=== PATIENT | female | born 1955 | race Caucasian/White ===

== ENCOUNTER → 2016-08-18 | Outpatient (CLI) | payer OTHER ==
--- NOTE | 2016-08-18 11:58 | BD ---
EXAMINATION TYPE: MG DEXA axial skeleton. DATE OF EXAM: 08/18/2016 10:14 AM COMPARISON: NONE CLINICAL HISTORY: Height: 67 IN Weight: 210 LBS FRAX RISK QUESTIONS: Alcohol (3 or more units per day): NO Family History (Parent hip fracture): NO Glucocorticoids (More than 3mos): NO (Ex: prednisone, prednisolone, methylprednisolone, dexamethasone, and hydrocortisone). History of Fracture in Adulthood: NO Secondary Osteoporosis: 1. Type 1 Diabetes: NO 2. Hyperthyroidism: NO 3. Menopause before 45: AGE 45 4. Malnutrition: NO 5. Chronic liver disease: NO Rheumatoid Arthritis: NO Current Tobacco Use: NO RISK FACTORS HISTORY OF: Active: YES Postmenopausal woman: YES AGE 45 TOTAL HYST MEDICATIONS: Additional Medications: VIT D,BLOOD PRESSURE MED EXAM MEASUREMENTS: Bone mineral densitometry was performed using the [employer]. Bone mineral density as measured about the Lumbar spine is: ----- L1-L4(G/cm2): 1.128 T Score Values are as follows: ----- L2: 0.3 ----- L3: 0.0 ----- L4: -1.4 ----- L1-L4: -0.4 Bone mineral density BASELINE Bone mineral density about the R hip (g/cm2): 0.862 Bone mineral density about the L hip (g/cm2): 0.874 T Score values are as follows: -----R Neck: -1.3 -----L Neck: -1.2 -----R Intertrochanter: -1.1 -----L Intertrochanter: 0.0 Bone mineral density BASELINE IMPRESSION: Osteopenia (T Score between -2.5 and -1 as noted by T score values There is slightly increased risk of fracture and the patient may be considered for treatment. Re-Screen 1-2 years. L4 AND THERESA HIPS NOTE: T-SCORE=SD OF THE YOUNG ADULT MEAN.
--- NOTE | 2016-08-21 10:35 | MM ---
Reason for exam: screening (asymptomatic). Last mammogram was performed 1 year and 1 month ago. History: Patient is postmenopausal, has history of endometrial cancer at age 53, and had first child at age 32. Physical Findings: A clinical breast exam by your physician is recommended on an annual basis and results should be correlated with mammographic findings. MG 3D Screening Mammo W/Cad Bilateral CC and MLO view(s) were taken. Prior study comparison: July 16, 2015, bilateral MG screening mammo w CAD. June 04, 2014, bilateral MG screening mammo w CAD. There are scattered fibroglandular densities. Finding: There are typically benign round calcifications in both breasts. There is a chronic nodularity in the right breast. There is no discrete abnormality. ASSESSMENT: Benign, BI-RAD 2 RECOMMENDATION: Routine screening mammogram of both breasts in 1 year.
== END | disposition home or self-care (01) ==
LOC: RADMAMWWP 09:06
PROVIDERS: ATTEND Obstetrics & Gynecology
DX: Z12.31 Encounter for screening mammogram for malignant neoplasm of breast (principal); M85.88 Other specified disorders of bone density and structure, other site; M85.852 Other specified disorders of bone density and structure, left thigh; M85.851 Other specified disorders of bone density and structure, right thigh
CPT/HCPCS: 77080; 77063; G0202

== ENCOUNTER → 2017-10-09 | Outpatient (CLI) | payer OTHER ==
--- NOTE | 2017-10-11 07:44 | MM ---
Reason for exam: screening (asymptomatic). Last mammogram was performed 1 year and 2 months ago. History: Patient is postmenopausal, has history of endometrial cancer at age 53, and had first child at age 32. Physical Findings: A clinical breast exam by your physician is recommended on an annual basis and results should be correlated with mammographic findings. MG 3D Screening Mammo W/Cad Bilateral CC and MLO view(s) were taken. Prior study comparison: August 18, 2016, bilateral MG 3d screening mammo w/cad. July 16, 2015, bilateral MG screening mammo w CAD. There are scattered fibroglandular densities. No significant changes when compared with prior studies. ASSESSMENT: Benign, BI-RAD 2 RECOMMENDATION: Routine screening mammogram of both breasts in 1 year.
== END | disposition home or self-care (01) ==
LOC: RADMAMWWP 11:01
PROVIDERS: ATTEND Obstetrics & Gynecology
DX: Z12.31 Encounter for screening mammogram for malignant neoplasm of breast (principal)
CPT/HCPCS: 77063; 77067

== ENCOUNTER → 2019-01-02 | Outpatient (CLI) | payer OTHER ==
--- NOTE | 2019-01-03 11:53 | MM ---
Reason for exam: screening (asymptomatic). Last mammogram was performed 1 year and 3 months ago. History: Patient is postmenopausal, has history of endometrial cancer at age 53, and had first child at age 32. Physical Findings: A clinical breast exam by your physician is recommended on an annual basis and results should be correlated with mammographic findings. MG 3D Screening Mammo W/Cad Bilateral CC and MLO view(s) were taken. Prior study comparison: October 09, 2017, bilateral MG 3d screening mammo w/cad. August 18, 2016, bilateral MG 3d screening mammo w/cad. The breast tissue is heterogeneously dense. This may lower the sensitivity of mammography. There is chronic nodularity in the right breast. There is no discrete abnormality. ASSESSMENT: Negative, BI-RAD 1 RECOMMENDATION: Routine screening mammogram of both breasts in 1 year.
== END ==
LOC: RADMAMWWP 16:48
PROVIDERS: ATTEND Obstetrics & Gynecology
DX: Z12.31 Encounter for screening mammogram for malignant neoplasm of breast (principal)
CPT/HCPCS: 77063; 77067

== ENCOUNTER → 2020-05-24 | Outpatient (CLI) | payer MEDICARE ==
--- NOTE | 2020-05-25 13:30 | MM ---
Reason for exam: screening (asymptomatic). Last mammogram was performed 1 year and 5 months ago. History: Patient is postmenopausal, has history of endometrial cancer at age 53, and had first child at age 32. Physical Findings: A clinical breast exam by your physician is recommended on an annual basis and results should be correlated with mammographic findings. MG 3D Screening Mammo W/Cad Bilateral CC and MLO view(s) were taken. XCCL view(s) were taken of the left breast. Prior study comparison: January 02, 2019, bilateral MG 3d screening mammo w/cad. October 09, 2017, bilateral MG 3d screening mammo w/cad. The breast tissue is heterogeneously dense. This may lower the sensitivity of mammography. There is chronic nodularity in the right breast. There is no discrete abnormality. ASSESSMENT: Negative, BI-RAD 1 RECOMMENDATION: Routine screening mammogram of both breasts in 1 year.
== END | disposition home or self-care (01) ==
LOC: RADMAMWWP 11:02
PROVIDERS: ATTEND Obstetrics & Gynecology
DX: Z12.31 Encounter for screening mammogram for malignant neoplasm of breast (principal)
CPT/HCPCS: 77063; 77067

== ENCOUNTER → 2021-06-02 | Outpatient (CLI) | payer MEDICARE ==
--- NOTE | 2021-06-06 09:50 | MM ---
Reason for exam: screening (asymptomatic). Last mammogram was performed 1 year ago. History: Patient is postmenopausal, has history of endometrial cancer at age 53, and had first child at age 32. Taking estrogen for 6 months. Physical Findings: A clinical breast exam by your physician is recommended on an annual basis and results should be correlated with mammographic findings. MG 3D Screening Mammo W/Cad Bilateral CC and MLO view(s) were taken. Prior study comparison: May 24, 2020, bilateral MG 3d screening mammo w/cad. January 02, 2019, bilateral MG 3d screening mammo w/cad. There are scattered fibroglandular densities. There is chronic nodularity in the right breast. No significant changes when compared with prior studies. ASSESSMENT: Benign, BI-RAD 2 RECOMMENDATION: Routine screening mammogram of both breasts in 1 year.
== END | disposition home or self-care (01) ==
LOC: RADMAMWWP 16:07
PROVIDERS: ATTEND Obstetrics & Gynecology
DX: Z12.31 Encounter for screening mammogram for malignant neoplasm of breast (principal); Z85.89 Personal history of malignant neoplasm of other organs and systems
CPT/HCPCS: 77063; 77067

== ENCOUNTER → 2022-06-05 | Outpatient (CLI) | payer MEDICARE ==
--- NOTE | 2022-06-06 17:34 | MM ---
Reason for Exam: Screening (asymptomatic). Last screening mammogram was performed 12 month(s) ago. Patient History: Menarche at age 11. First Full-Term at age 32. Late child-bearing (after 30). Left ovary removed at age 30. Right ovary removed at age 53. Hysterectomy at age 53. Postmenopausal. Endometrial cancer, age 53. Currently using Estrogen, for 6 months. Risk Values: Emily 5 year model risk: 2.4%. NCI Lifetime model risk: 7.3%. Prior Study Comparison: 01/02/2019 Bilateral Screening Mammogram, [facility]. 05/24/2020 Bilateral Screening Mammogram, [facility]. 06/02/2021 Bilateral Screening Mammogram, [facility]. Tissue Density: There are scattered fibroglandular densities. Findings: Analyzed By CAD. Focal asymmetry is in the upper outer aspect right mid breast. Chronic nodularities in the outer aspect right breast. In the anterior right breast there is some subsegmental calcifications which may correspond to a vessel. Closer evaluation however is recommended. Calcifications are increasing from comparison. Overall Assessment: Incomplete: need additional imaging evaluation, BI-RAD 0 Management: Diagnostic Mammogram of the right breast. A negative mammogram report should not preclude additional follow up of suspicious palpable abnormalities. Patient should continue monthly self breast exam. A clinical breast exam by your physician is recommended on an annual basis and results should be correlated with mammographic findings. Electronically signed and approved by: Juan Miguel Ha D.O. Radiologis
== END | disposition home or self-care (01) ==
LOC: RADMAMWWP 09:54
PROVIDERS: ATTEND Obstetrics & Gynecology
DX: Z12.31 Encounter for screening mammogram for malignant neoplasm of breast (principal); Z78.0 Asymptomatic menopausal state; Z90.721 Acquired absence of ovaries, unilateral
CPT/HCPCS: 77063; 77067

== ENCOUNTER → 2022-06-09 | Outpatient (CLI) | payer MEDICARE ==
--- NOTE | 2022-06-09 14:26 | MM ---
Reason for Exam: Additional evaluation requested from abnormal screening. Last screening mammogram was performed less than 1 month ago. Patient History: Menarche at age 11. First Full-Term at age 32. Late child-bearing (after 30). Left ovary removed at age 30. Right ovary removed at age 53. Hysterectomy at age 53. Postmenopausal. Endometrial cancer, age 53. Currently using Estrogen, for 6 months. Risk Values: Emily 5 year model risk: 2.4%. NCI Lifetime model risk: 7.3%. Tissue Density: Right: There are scattered fibroglandular densities. Findings: Analyzed By CAD. Grouped calcifications seen within the right breast lateral lower quadrant of the right breast at anterior/middle depth. While these calcifications may be in a vessel on some of the views including the ML view appear to be outside the vessel. Overall Assessment: Suspicious, BI-RAD 4 Management: Stereotactic Core Biopsy of the right breast. Grouped calcifications within the lower outer quadrant which on at least one view do not appear to be within a vessel. A clinical breast exam by your physician is recommended on an annual basis and results should be correlated with mammographic findings. This exam should not preclude additional follow-up of suspicious palpable abnormalities. Results were given to the patient verbally at the time of exam. Electronically signed and approved by: Aurelio Mendoza DO
== END | disposition home or self-care (01) ==
LOC: RADMAMWWP 13:38
PROVIDERS: ATTEND Obstetrics & Gynecology
DX: R92.8 Other abnormal and inconclusive findings on diagnostic imaging of breast (principal); Z78.0 Asymptomatic menopausal state
CPT/HCPCS: 77065; G0279; 77061

== ENCOUNTER → 2022-06-26 | Day surgery (SDC) | payer MEDICARE ==
[2022-06-26 07:21] VITALS: RESP 16; TEMP 98
[2022-06-26 08:17] VITALS: BP 160/86; PULSE 89
--- NOTE | 2022-07-03 08:40 | MM ---
Risk Values: Emily 5 year model risk: 2.4%. NCI Lifetime model risk: 7.3%. Prior Study Comparison: 06/02/2021 Bilateral Screening Mammogram, [facility]. 06/05/2022 Bilateral MG 3D screening mammo w/cad, [facility]. 06/09/2022 Right MG 3D work up w/cad RT, [facility]. Pathology Description: Marker Left Behind. Approach: CC FB Needle Type: Eviva Cores: 7 Skin Nicks: 1 Gauge: 9 no problems The calcifications in question within the right breast were targeted by the undersigned. Procedure was performed by the undersigned. Informed consent was obtained and all of the patients questions were answered. The standard sterile technique was utilized and appropriate local anesthesia was obtained with 1% lidocaine. Mammotome probe was advanced and multiple core samples were obtained and sent to pathology for interpretation. Microclip marker was deployed at the site of biopsy. Post procedural mammogram demonstrates appropriate deployment of radiopaque clip marker. The patient tolerated the procedure well and left the department in stable condition. Pathology results are pending. Impression: Successful stereotactic core biopsy right breast. Pathology Results: Result: Malignant, Ductal carcinoma in situ, comedo type. 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 See Surgical Pathology Cancer Case Summary and Comment. Overall Assessment: Malignant Management: Surgical Consultation of the right breast. Electronically signed and approved by: Servando Jarquin M.D. Radiologis
== END ==
LOC: RADMAMWWP 07:04
PROVIDERS: ATTEND Obstetrics & Gynecology
DX: D05.11 Intraductal carcinoma in situ of right breast (principal)
CPT/HCPCS: 88305; 88342; 88341; 19081; A4648; J2001

== ENCOUNTER → 2022-07-07 | Outpatient (CLI) | payer MEDICARE ==
[2022-07-07 12:36] VITALS: BP 125/65; PULSE 79; RESP 17; TEMP 98.8
--- NOTE | 2022-07-07 12:42 | P.GSHP ---
History of Present Illness H&P Date: 07/07/22 Chief Complaint: DCIS right breast Lynette is a 67 year old white female seen in consultation for Dr. Monge regarding a biopsy proven right breast DCIS. She had a screening mammogram n 06-05-22 this was considered BIRADS 0. She had additional [place] [address] after which stereotactic core biopsy was recommended. This was performed on 112 122. This revealed high-grade ductal carcinoma in situ which was ER/DE negative. The mammogram has been reviewed personally with Dr. Ha it is believed that the area of concern is approximately 2 cm in size. Additionally there is a question of some nodularity in the breast which may represent some intramammary lymph nodes. The mammogram was a routine mammogram. The patient did not feel any lumps masses or notches of concern in either breast. She is not complaining of any nipple discharge or skin changes. She never had any surgery on her breasts before. Tolerated the procedure without difficulty. Caffeine: occasional nicotine: none, never smoker chocolate: none BCP: < a year in her 20's Family History: father: leukemia patient: uterine cancer 2007 [facility] Hormonal History: menarche: 11 G2M1P1, breast fed: yes, age at : 32 menopause: ablation in her 40's for fibroid tumors and bleeding; hysterectomy at 50 hormones to get minimal took at 36 Surgical History: UZIEL at 50 multiple fertility surgeries Medical History: thyroid nodules HTN Social History: nicotine: none alcohol: none drugs: none - Constitutional Constitutional: Denies chills, Denies fever - EENT Eyes: denies blurred vision, denies pain Ears: deny: decreased hearing, tinnitus Ears, nose, mouth and throat: Denies headache, Denies sore throat - Breasts Breasts: bilateral: as per HPI - Cardiovascular Cardiovascular: Denies chest pain, Denies shortness of breath - Respiratory Respiratory: Denies cough, Denies 7 - Gastrointestinal Gastrointestinal: Denies abdominal pain, Denies diarrhea, Denies nausea, Denies vomiting - Genitourinary (Female) Genitourinary: Denies dysuria, Denies hematuria - Menstruation Menstruation: Reports post hysterectomy - Musculoskeletal Musculoskeletal: Denies myalgias - Integumentary Integumentary: Denies pruritus, Denies rash - Neurological Neurological: Denies numbness, Denies weakness - Psychiatric Psychiatric: Denies anxiety, Denies depression - Endocrine Comment: thyroid nodules Endocrine: Denies fatigue, Denies weight change - Hematologic/Lymphatic Comment: none - Allergic/Immunologic Allergic/Immunologic: Reports as per HPI Past Medical History Past Medical History: Hypertension History of Any Multi-Drug Resistant Organisms: None Reported Past Surgical History: Hysterectomy Past Anesthesia/Blood Transfusion Reactions: No Reported Reaction Past Psychological History: No Psychological Hx Reported Smoking Status: Never smoker Past Alcohol Use History: None Reported Past Drug Use History: None Reported Medications and Allergies Home Medications Medication Instructions Recorded Confirmed Type amLODIPine 10 mg PO DAILY 06/13/22 07/07/22 History Allergies Allergy/AdvReac Type Severity Reaction Status Date / Time No Known Allergies Allergy Verified 07/07/22 12:07 Surgical - Exam BMI: 29.2 - General no distress - Eyes normal ocular movement - Neck trachea midline - Respiratory normal respiratory effort, clear to auscultation - Cardiovascular Rhythm: regular Heart Sounds: normal: S1, S2 - Abdomen Abdomen: soft, non tender, no guarding, no rigid, no rebound - Integumentary normal tugor - Neurologic no disoriented, no combative - Musculoskeletal normal gait - Psychiatric oriented to time, oriented to person, oriented to place, speech is normal, memory intact Breast Exm: BRA: 42C/D inspection: bilateral grade 2/3 ptosis palpation: right breast: Multi-positional exam fibrocystic changes, stereotactic core biopsy site clean and dry no evidence of infection or hematoma; no dominant masses or nodules of concern Right axilla: Shotty adenopathy Left breast: Multi-positional exam fibrocystic changes no dominant masses or nodules of concern Left axilla: Shotty adenopathy Results Mammogram reviewed in detail with Dr. Ha Assessment and Plan Assessment: Impression: DCIS right breast lower outer quadrant Plan: Ultrasound right breast and right axilla Presentation of case at tumor board C: Dr. Monge
== END ==
LOC: WWCWWP 11:49
PROVIDERS: ATTEND Surgery
DX: D05.11 Intraductal carcinoma in situ of right breast (principal)

== ENCOUNTER → 2022-07-07 | Outpatient (CLI) | payer MEDICARE ==
--- NOTE | 2022-07-07 14:34 | USB ---
Reason for Exam: Clinical finding. Patient History: Menarche at age 11. First Full-Term at age 32. Late child-bearing (after 30). Left ovary removed at age 30. Right ovary removed at age 53. Hysterectomy at age 53. Postmenopausal. Endometrial cancer, age 53. Breast cancer, right, age 67. Currently using Estrogen, for 6 months. 06/26/2022, Malignant MG stereo VAD BX RT on the right side. Technique: Method: Whole Breast Handheld. Prior Study Comparison: 06/02/2021 Bilateral Screening Mammogram, [facility]. 06/05/2022 Bilateral MG 3D screening mammo w/cad, [facility]. 06/09/2022 Right MG 3D work up w/cad RT, [facility]. Findings: The whole breast of the right breast, the axilla of the right breast and the retroareolar of the right breast were scanned. There is a hypoechoic area at 10:00 position right breast posterior location 10 cm from the nipple. This has posterior shadowing. This measures 0.4 x 0.4 x 0.4 cm. Ultrasound-guided core biopsy with marker placement is recommended. Scattered lymph nodes are present. No abnormal lymph node by ultrasound is evident.. Overall Assessment: Suspicious, BI-RAD 4 Management: Ultrasound Core Biopsy of the right breast. A clinical breast exam by your physician is recommended on an annual basis and results should be correlated with mammographic findings. This exam should not preclude additional follow-up of suspicious palpable abnormalities. ??Results were given to the patient verbally at the time of exam. Electronically signed and approved by: Juan Miguel Ha D.O. Radiologis
== END | disposition home or self-care (01) ==
LOC: RADUSWWP 13:23
PROVIDERS: ATTEND Surgery
DX: R92.8 Other abnormal and inconclusive findings on diagnostic imaging of breast (principal); Z78.0 Asymptomatic menopausal state; Z90.721 Acquired absence of ovaries, unilateral

== ENCOUNTER → 2022-07-12 | Day surgery (SDC) | payer MEDICARE ==
--- NOTE | 2022-07-12 11:56 | MM ---
Reason for Exam: Post Procedure Mammogram. Last screening mammogram was performed 2 month(s) ago. Patient History: Menarche at age 11. First Full-Term at age 32. Late child-bearing (after 30). Left ovary removed at age 30. Right ovary removed at age 53. Hysterectomy at age 53. Postmenopausal. Patient has history of breast feeding. Breast cancer, right, age 67. 06/26/2022, Malignant MG stereo VAD BX RT on the right side. Prior Study Comparison: 06/02/2021 Bilateral Screening Mammogram, [facility]. 06/05/2022 Bilateral MG 3D screening mammo w/cad, [facility]. 06/09/2022 Right MG 3D work up w/cad RT, [facility]. Tissue Density: Right: There are scattered fibroglandular densities. Overall Assessment: Post procedure mammogram for marker placement Management: Post Mammogram for Hernandez Placement of the right breast. Electronically signed and approved by: Aurelio Mendoza DO
--- NOTE | 2022-07-17 11:28 | USB ---
Prior Study Comparison: 06/02/2021 Bilateral Screening Mammogram, [facility]. 06/05/2022 Bilateral MG 3D screening mammo w/cad, [facility] 06/09/2022 Right MG 3D work up w/cad RT, [facility]. Pathology Description: Location: 10 o'clock, upper outer quadrant, anterior. Marker Left Behind. Needle Type: Mammotome Cores: 7 Skin Nicks: 1 Gauge: 13 The procedure of ultrasound guided core biopsy was explained to the patient. Benefits, alternatives, and risks were discussed. An informed consent was then obtained. The patient was placed in supine positioning for imaging and for the procedure. The overlying skin was prepped and draped in usual sterile fashion. Lidocaine buffered with bicarbonate was used as anesthetic into the skin and subcutaneous tissue up to area of concern in the right breast. A richar was made with surgical scalpel. Under ultrasound guidance, a 12-gauge vacuum assisted biopsy gun device was used to obtain 7 core samples. Following this, a biopsy clip was left in lesion. The patient tolerated the procedure well without any immediate complication. The patient was kept in the radiology department for short stay after the procedure and then discharged home in stable condition. Postprocedure mammogram: The patient was transferred to mammography for physician ordered post procedure mammogram for clip placement verification. Impression: Successful, uncomplicated ultrasound guided core biopsy of area of concern in the right breast, full pathology results to follow. Pathology Results: Result: Malignant, Invasive ductal carcinoma. RIGHT BREAST, 10:00 POSITION, CORE BIOPSY: Low grade invasive ductal carcinoma, grade 1, with focal low grade ductal carcinoma in situ (DCIS). See surgical pathology cancer case summary and comment. Overall Assessment: Malignant Management: Surgical Consultation of the right breast. Electronically signed and approved by: Aurelio Mendoza DO
== END ==
LOC: RADUSWWP 10:08
PROVIDERS: ATTEND Surgery
DX: D05.11 Intraductal carcinoma in situ of right breast (principal)
CPT/HCPCS: 88305; 88342; 88341; 77065; 19083; A4648

== ENCOUNTER → 2022-08-11 | Outpatient (CLI) | payer MEDICARE ==
[2022-08-11 15:09] VITALS: BP 137/75; PULSE 77; RESP 18
--- NOTE | 2022-08-11 16:33 | P.PN ---
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 Monge regarding a biopsy proven right breast DCIS. She had a screening mammogram n 06-05-22 this was considered BIRADS 0. [place] additional [place] [address] after which stereotactic core biopsy was recommended. This was performed on 1120 122. This revealed high-grade ductal carcinoma in situ which was ER/OK negative. The mammogram has been reviewed personally with Dr. Ha it is believed that the area of concern is approximately 2 cm in size. Additionally there is a question of some nodularity in the breast which may represent some intramammary lymph nodes. The mammogram was a routine mammogram. The patient did not feel any lumps masses or notches of concern in either breast. She is not complaining of any nipple discharge or skin changes. She never had any surgery on her breasts before. Tolerated the procedure without difficulty. After review of the mammogram with Dr. Ha and ultrasound was recommended of the right breast which led to a second biopsy of the posterior [place] [address]. Pathology from this revealed low-grade invasive ductal carcinoma grade 1. This tumor was ER/OK positive and HER-2 negative. Her case was presented at tumor board on [id number]. The patient would like to have breast preservation despite the fact she has 2 areas of concern in her breast. The mammogram has been reviewed with the radiologist. There are 2 distinct areas of concern in the breast. These are separate from each other. The patient would prefer to save her breast. Caffeine: occasional nicotine: none, never smoker chocolate: none BCP: < a year in her 20's Family History: father: leukemia patient: uterine cancer 2007 [facility] Hormonal History: menarche: 11 G2M1P1, breast fed: yes, age at : 32 menopause: ablation in her 40's for fibroid tumors and bleeding; hysterectomy at 50 hormones to get minimal took at 36 Surgical History: UZIEL at 50 multiple fertility surgeries Medical History: thyroid nodules HTN Social History: nicotine: none alcohol: none drugs: none - Constitutional Constitutional: Denies chills, Denies fever - EENT Eyes: denies blurred vision, denies pain Ears: deny: decreased hearing, tinnitus Ears, nose, mouth and throat: Denies headache, Denies sore throat - Breasts Breasts: bilateral: as per HPI - Cardiovascular Cardiovascular: Denies chest pain, Denies shortness of breath - Respiratory Respiratory: Denies cough - Gastrointestinal Gastrointestinal: Denies abdominal pain, Denies diarrhea, Denies nausea, Denies vomiting - Genitourinary (Female) Genitourinary: Denies dysuria, Denies hematuria - Menstruation Menstruation: Reports post hysterectomy - Musculoskeletal Musculoskeletal: Denies myalgias - Integumentary Integumentary: Denies pruritus, Denies rash - Neurological Neurological: Denies numbness, Denies weakness - Psychiatric Psychiatric: Denies anxiety, Denies depression - Endocrine Comment: thyroid nodules Endocrine: Denies fatigue, Denies weight change - Hematologic/Lymphatic Comment: none - Allergic/Immunologic Allergic/Immunologic: Reports as per HPI Past Medical History Past Medical History: Hypertension History of Any Multi-Drug Resistant Organisms: None Reported Past Surgical History: Hysterectomy Past Anesthesia/Blood Transfusion Reactions: No Reported Reaction Past Psychological History: No Psychological Hx Reported Smoking Status: Never smoker Past Alcohol Use History: None Reported Past Drug Use History: None Reported Medications and Allergies Home Medications Medication Instructions Recorded Confirmed Type amLODIPine 10 mg PO DAILY 06/13/22 07/07/22 History Allergies Allergy/AdvReac Type Severity Reaction Status Date / Time No Known Allergies Allergy Verified 07/07/22 12:07 Objective - Vital Signs Vital signs: Vital Signs Temp Pulse 77 08/11/22 15:05 Resp 18 08/11/22 15:05 BP 137/75 08/11/22 15:05 Pulse Ox 95 08/11/22 15:05 FiO2 Intake & Output 08/10/22 08/11/22 08/11/22 18:59 06:59 18:59 Weight 87.09 kg - Constitutional General appearance: Present: cooperative - EENT Eyes: Present: EOMI ENT: Present: hearing grossly normal - Neck Neck: Present: normal ROM - Respiratory Respiratory: bilateral: CTA - Cardiovascular Rhythm: regular Heart sounds: normal: S1, S2 - Gastrointestinal General gastrointestinal: Present: soft - Integumentary Integumentary: Present: normal turgor - Musculoskeletal Musculoskeletal: Present: gait normal - Psychiatric Psychiatric: Present: A&O x's 3, appropriate affect, intact judgment & insight - Additional findings Additional findings: Breast Exm: BRA: 42C/D inspection: bilateral grade 2/3 ptosis palpation: right breast: Multi-positional exam fibrocystic changes, stereotactic core biopsy site clean and dry no evidence of infection or hematoma; no dominant masses or nodules of concern Right axilla: Shot[place] adenopathy Left breast: Multi-positional exam fibrocystic changes no dominant masses or nodules of concern Left axilla: Shot[place] adenopathy Assessment and Plan Assessment: Impression: 1. DCIS lower lateral right breast approximately 2 cm in size 2. Invasive ductal carcinoma 10 o'clock position right breast separate primary site ER/OK positive HER-2/julienne negative 3. Nodules 4. Hypertension Plan: Needle localization of 2 sites in the right breast, the site of DCIS at the lateral lower right breast, and the site of invasive ductal carcinoma 10:00 right breast. Lumpectomy of both sites. Onco-plastic tissue transfer. Right sentinel node injection, right sentinel node biopsy, possible right axillary node dissection. Risk and benefits of the procedure discussed with the patient. She understands and wishes to proceed. We have discussed mastopexy and we are not going to do this. We have also discussed possible mastectomy plus or minus reconstruction at this time we are going to try to preserve the breast. She understands that the margins were to be positive that it may be necessary to undergo reexcision. Risk include but are not limited to bleeding, infection, reaction to the anesthetic. Surgery in the axilla can result in decreased sensation to the inner arm, lymphedema, or injury to the thoracodorsal or long thoracic nerves resulting in wing scapula. She understands and wishes to proceed. CC: Dr. Monge
== END ==
LOC: WWCWWP 14:50
PROVIDERS: ATTEND Surgery
DX: R92.8 Other abnormal and inconclusive findings on diagnostic imaging of breast (principal); I10 Essential (primary) hypertension

== ENCOUNTER 2022-08-17 06:19 | Day surgery (SDC) | payer MEDICARE ==
[2022-08-14 13:01] VITALS: BMI 29.6
[~2022-08-17 06:19] MED LIST: HEPARIN SODIUM,PORCINE/PF 5,000 UNIT/0.5 ML SYRINGE SQ PRN; Pre Op ABX Message 1 EACH MISC MISCELLANE ONE
[2022-08-17] MEDS ORDERED: SCOPOLAMINE 1 MG/72 HR PATCH TRANSDERM ONE (06:43)
[2022-08-17] MEDS ORDERED: LACTATED RINGERS 1,000 ML IV SCH (06:43)
[2022-08-17] MEDS ORDERED: DEXAMETHASONE SOD PHOSPHATE 4 MG/ML 1 ML VIAL IV ONE (06:43)
[2022-08-17] MEDS ORDERED: LIDOCAINE 1% (10MG/ML) FOR IV START INTRADERMA PRN (06:43)
[2022-08-17] MEDS ORDERED: ONDANSETRON 4 MG/2 ML VIAL IVP ONE (06:43)
[2022-08-17] MEDS ORDERED: METOCLOPRAMIDE 5 MG/ML 2 ML VIAL IVP PRN (07:00)
[2022-08-17] MEDS ORDERED: ALPRAZolam 0.5 MG TAB PO PRN (07:00)
[2022-08-17] MEDS ORDERED: HYDROmorphone 0.5 MG/0.5 ML SYRINGE IVP PRN (07:00)
[2022-08-17 07:57] VITALS: TEMP 98.1
[2022-08-17] MEDS ORDERED: LIDOCAINE 1% INJ 10MG/ML (5 ML VIAL-PF) SQ ONE (08:19)
[2022-08-17] MEDS ORDERED: PROPOFOL 10 MG/ML 20 ML VIAL IV ONE (09:28)
[2022-08-17] MEDS ORDERED: PHENYLEPHRINE-0.9% NACL SYG 1,000 MCG/10 ML SYRINGE ONE (09:28)
[2022-08-17] MEDS ORDERED: LIDOCAINE 2% INJ 20 MG/ML (2 ML VIAL) ONE (09:28)
[2022-08-17] MEDS ORDERED: ePHEDrine 50 MG/ML 1 ML VIAL ONE (09:28)
[2022-08-17] MEDS ORDERED: fentaNYL (PF) 50 MCG/ML 2 ML AMP ONE (09:28)
[2022-08-17] MEDS ORDERED: SUCCINYLCHOLINE CHLORIDE 200 MG/10 ML VIAL IV ONE (09:28)
[2022-08-17] MEDS ORDERED: MIDAZOLAM 2 MG/2 ML VIAL ONE (09:28)
--- NOTE | 2022-08-17 09:36 | P.NAPBC ---
NAPBC Queries - NAPBC Queries Was patient's case review presented at [facility] tumor board? If no, comment.: Yes Was patient's pathology reviewed at [facility]? If no, comment.: Yes Was breast conservation surgery offered? If no, comment.: Yes Was sentinel node biopsy offered? If no, comment.: Yes Was diagnosis confirmed by percutaneous core biopsy? If no, comment.: Yes Is patient mastectomy patient?: No Was a preop referral to reconstructive surgeon offered?: No Clinical Stage: Two sites patient offered mastectomy but declined; DCIS and stage I invasive cancer right breast
--- NOTE | 2022-08-17 09:51 | NM ---
EXAMINATION TYPE: NM sentinel node injection DATE OF EXAM: 08/17/2022 COMPARISON: 07/12/2022 HISTORY: 67-year-old female referred for needle localization and excision of calcifications/DCIS as w ell as biopsy-proven breast cancer in her right breast. TECHNIQUE AND FINDINGS: The procedure of sentinel lymph node injection was explained to the patient. The benefits, alternatives, and risks were discussed. An informed consent was then obtained. Overlying skin is cleaned with sterile alcohol. Following this, 465 uCi Tc99m Tilmanocept was inject ed in the upper outer aspect of the right nipple intradermally. The patient tolerated the procedure well without any immediate complication. The patient was kept in the radiology department for short stay after the procedure and then taken to surgery for surgical p rocedure what is presumed intraoperative gamma probe will be used for sentinel lymph node detection. IMPRESSION: Right breast radiotracer injection for sentinel node localization as above.
[2022-08-17] MEDS ORDERED: LIDOCAINE 1%-EPI 1:100,000 20 ML VIAL SQ ONE (09:57)
[2022-08-17] MEDS ORDERED: LACTATED RINGERS 1,000 ML IV ONE (10:50)
--- NOTE | 2022-08-17 11:33 | P.OP ---
Date of Procedure: 08/17/22 Preoperative Diagnosis: DCIS and invasive ductal carcinoma right breast 2 sites Postoperative Diagnosis: Same Procedure(s) Performed: Right breast sentinel node biopsy, right breast needle localization lumpectomy area of DCIS, onco-plastic tissue transfer 35 cm needle Localization lumpectomy invasive ductal carcinoma second site, onco- plastic tissue transfer 25 cm, total tissue transfer 60 cm Anesthesia: GETA Surgeon: Abbi Huston Estimated Blood Loss (ml): 20 IV fluids (ml): 1,300 Pathology: other ([place] lymph node, breast tissue from 2 sites) Condition: stable Disposition: same day Indications for Procedure: DCIS and invasive ductal carcinoma right breast Operative Findings: Fibrofatty breast tissue Description of Procedure: [place] node biopsy Needle localization lumpectomy inferior right breast, 35 cm onco-palstic tissue transfer needle localization excisional lumpectomy second site right breast, 25 cm oncoplastic tissue transfer The patient is a 67-year-old white female who was diagnosed with DCIS and a second set of invasive ductal carcinoma in the right breast at 2 separate sites. The patient wished to attempt breast conservation. She was given the option of a mastectomy. The patient was taken first to the radiology suite where needle localization of both sites was performed as well as sentinel node injection. She was then brought to the operative suite. In the operative suite and following induction of anesthesia the neoprobe was used to identify radioactivity in the axilla. The right breast and axilla were then prepped and draped in a sterile fashion. The area of the axilla was approached initially. Using the neoprobe the area of greatest radioactivity was used to anesthetize the incision was made and carried down to the area of greatest radioactivity. This area was excised. The 10 second count was 1855, the 10 second background count was 24. After assured that hemostasis was attained the deep tissues were closed. No other adenopathy of concern was palpated. The deep tissues were closed using 3-0 Vicryl suture. Skin was closed using 4-0 Monocryl. The breast was then approached. The DCIS was approached initially. This had been bracketed with 2 needles. Excision was performed removing the skin as part of the excision. Dissection was performed around this down to the pectoralis muscle. Wide excision was performed. The specimen cavity was 5 x 4 cm. Mobilization inferiorly was 3 x 3 cm. Mobilization superiorly was 3 x 2 cm. The specimen was painted for orientation and radiographs revealed the area of concern about removed. The wound was well irrigated. Titanium clips were placed. The superior and inferior pillars were brought together using 3-0 Vicryl suture. The total tissue transfer was 35 cm. The skin at this site was closed using 4-0 Monocryl. The second areas of concern in the right breast was then addressed. An incision was made and carried down to the hook of the needle. Surrounding tissue was excised. The cavity was 5 x 2 cm. A superior pillar 3 x 2 cm was formed and inferior pillar 3 x 3 cm was performed. Total tissue transfer was 25 cm. The wound was well irrigated. Titanium clips were placed. The superior and inferior pillars were brought together. The specimen was painted for orientation. X-ray revealed the area of concern was removed. Additional tissue was obtained superiorly, inferiorly and medially. Anteriorly dissection was performed directly under the skin and posteriorly onto the pectoralis muscle. The area was closed using 3-0 Vicryl suture as well as 4-0 Monocryl subcuticular suture. Steri-Strips were applied. The patient tolerated the procedure in stable condition. All instrument and sponge counts were correct at the end of the case.
--- NOTE | 2022-08-17 11:35 | P.DS ---
Providers Attending physician: Abbi Huston Primary care physician: Angie Esquivel Plan - Discharge Summary Discharge Rx Participant: No New Discharge Prescriptions: No Action Aspirin/Acetaminophen/Caffeine [Excedrin Extra Strength Caplet] 1 each PO DIRECTED PRN PRN Reason: Pain amLODIPine BESYLATE/BENAZEPRIL [amLODIPine BESYLATE/BENAZEPRIL 10-20 mg] 1 cap PO DAILY Multivitamins, Thera [Multivitamin (formulary)] 1 tab PO DAILY Discharge Medication List Aspirin/Acetaminophen/Caffeine [Excedrin Extra Strength Caplet] 1 each PO DIRECTED PRN 07/10/22 [History] Multivitamins, Thera [Multivitamin (formulary)] 1 tab PO DAILY 08/14/22 [History] amLODIPine BESYLATE/BENAZEPRIL [amLODIPine BESYLATE/BENAZEPRIL 10-20 mg] 1 cap PO DAILY 08/14/22 [History] Follow up Appointment(s)/Referral(s): Abbi Huston MD [STAFF PHYSICIAN] - 1 Week Activity/Diet/Wound Care/Special Instructions: do not drive until seen by Dr. Mercado May shower after 48 hours Wear bra at all times, unless showering Discharge Disposition: HOME SELF-CARE
[2022-08-17 12:42] VITALS: RESP 18
[2022-08-17 13:58] VITALS: BP 101/65; PULSE 84
== END 2022-08-17 14:48 | disposition home or self-care (01) ==
LOC: OR 06:19
PROVIDERS: ATTEND Surgery
DX: D05.11 Intraductal carcinoma in situ of right breast (principal); I10 Essential (primary) hypertension; Z79.899 Other long term (current) drug therapy; E07.9 Disorder of thyroid, unspecified; E04.1 Nontoxic single thyroid nodule; Z79.82 Long term (current) use of aspirin
CPT/HCPCS: 76098; 19281; 19282; 38792; 19301; 14001; 38525; 38900; C1819 ×2; A9520; J2250; J0330; J1100; J2765; J2405; J2001 ×2; J3010; J2370; J2704; J1644

== ENCOUNTER → 2022-08-25 | Outpatient (CLI) | payer MEDICARE ==
[2022-08-25 08:36] VITALS: BP 158/87; PULSE 85; RESP 18; TEMP 98.2
--- NOTE | 2022-08-25 08:49 | P.PN ---
Progress Note - Text Progress Note Date: 08/25/22 Lynette is a 67-year-old white female status post right breast lumpectomy [place] sentinel [place] biopsy [place] [id number]. Lumpectomy revealed high-grade DCIS with microcalcifications and comedonecrosis. All margins were negative. A second area of lumpectomy revealed invasive low-grade ductal carcinoma of low-grade DCIS margins were negative. The patient had 3 lymph nodes samples in addition to one sentinel node all were negative for cancer. In the medial inferior and superior margin were obtained all margins were negative for in situ or invasive cancer. Physical examination: Lungs: Clear Heart: Regular rate and rhythm Incisions all clean and dry no evidence of any infection Impression: Patient doing well status post right breast lumpectomy and axillary node/sentinel node resection Plan: Appointment medical oncology Appointment radiation oncology Follow-up. 4 months CC: Dr. Esquivel
== END ==
LOC: WWCWWP 08:24
PROVIDERS: ATTEND Surgery
DX: Z85.3 Personal history of malignant neoplasm of breast (principal)

== ENCOUNTER → 2022-12-22 | Outpatient (CLI) | payer MEDICARE ==
[2022-12-22 14:55] VITALS: BP 141/80; PULSE 100; RESP 18; TEMP 98.1
--- NOTE | 2022-12-22 15:08 | P.PN ---
Subjective Progress Note Date: 12/22/22 nvasive ductal carcinoma right breast/DCIS right breast History of Present Illness H&P Date: 07/07/22 Chief Complaint: DCIS right breast Lynette is a 67 year old white female seen in consultation for Dr. Monge regarding a biopsy proven right breast DCIS. She had a screening mammogram n 06-05-22 this was considered BIRADS 0. She had additional [place] [address] after which stereotactic core biopsy was recommended. This was performed on 1120 122. This revealed high-grade ductal carcinoma in situ which was ER/IL negative. The mammogram has been reviewed personally with Dr. Ha it is believed that the area of concern is approximately 2 cm in size. Additionally there is a question of some nodularity in the breast which may represent some intramammary lymph nodes. The mammogram was a routine mammogram. The patient did not feel any lumps masses or notches of concern in either breast. She is not complaining of any nipple discharge or skin changes. She never had any surgery on her breasts before. Tolerated the procedure without difficulty. After review of the mammogram with Dr. Ha an ultrasound was recommended of the right breast which led to a second biopsy of the posterior [place] [address]. Pathology from this revealed low-grade invasive ductal carcinoma grade 1. This tumor was ER/IL positive and HER-2 negative. Her case was presented at tumor board on [id number]. The patient would like to have breast preservation despite the fact she has 2 areas of concern in her breast. The mammogram has been reviewed with the radiologist. There are 2 distinct areas of concern in the breast. These are separate from each other. The patient would prefer to save her breast. 12-22-22 The patient on 08-17-22 underwent a lumpectomy and SNB. 2 separate areas of lumpectomy. The first revealed high-grade DCIS with microcalcifications and comedonecrosis. All margins were negative. A second area revealed invasive low-grade ductal carcinoma of low-grade DCIS margins were negative. The patient had 3 lymph nodes sampled in addition to one sentinel node all were negative for cancer. There were new medial, inferior, and superior margins all margins were negative for in situ or invasive cancer. She completed radiation therapy October 18, 2022. She is tolerating letrazole at this time . Note Dr. Torres reviewed 09-12-[address] Warner 09-13-22 The patient is not complaining of any new lumps masses or notches of concern in either breast. She will be due for bilateral mammogram in June 2023. She underwent a thyroid nodule biopsy recently, benign. She has a small amount of ecchymosis at the site. Caffeine: occasional nicotine: none, never smoker chocolate: none BCP: < a year in her 20's Family History: father: leukemia patient: uterine cancer 2007 [facility] Hormonal History: menarche: 11 G2M1P1, breast fed: yes, age at : 32 menopause: ablation in her 40's for fibroid tumors and bleeding; hysterectomy at 50 hormones to get minimal took at 36 Surgical History: UZIEL at 50 multiple fertility surgeries Medical History: thyroid nodules HTN Social History: nicotine: none alcohol: none drugs: none - Constitutional Constitutional: Denies chills, Denies fever - EENT Eyes: denies blurred vision, denies pain Ears: deny: decreased hearing, tinnitus Ears, nose, mouth and throat: Denies headache, Denies sore throat - Breasts Breasts: bilateral: as per HPI - Cardiovascular Cardiovascular: Denies chest pain, Denies shortness of breath - Respiratory Respiratory: Denies cough - Gastrointestinal Gastrointestinal: Denies abdominal pain, Denies diarrhea, Denies nausea, Denies vomiting - Genitourinary (Female) Genitourinary: Denies dysuria, Denies hematuria - Menstruation Menstruation: Reports post hysterectomy - Musculoskeletal Musculoskeletal: Denies myalgias - Integumentary Integumentary: Denies pruritus, Denies rash - Neurological Neurological: Denies numbness, Denies weakness - Psychiatric Psychiatric: Denies anxiety, Denies depression - Endocrine Comment: thyroid nodules Endocrine: Denies fatigue, Denies weight change - Hematologic/Lymphatic Comment: none - Allergic/Immunologic Allergic/Immunologic: Reports as per HPI Past Medical History Past Medical History: Hypertension History of Any Multi-Drug Resistant Organisms: None Reported Past Surgical History: Hysterectomy Past Anesthesia/Blood Transfusion Reactions: No Reported Reaction Past Psychological History: No Psychological Hx Reported Smoking Status: Never smoker Past Alcohol Use History: None Reported Past Drug Use History: None Reported Medications and Allergies Home Medications Medication Instructions Recorded Confirmed Type amLODIPine 10 mg PO DAILY 06/13/22 07/07/22 History Allergies Allergy/AdvReac Type Severity Reaction Status Date / Time No Known Allergies Allergy Verified 07/07/22 12:07 Objective - Vital Signs Vital signs: Vital Signs Temp 98.1 F 12/22/22 14:51 Pulse 100 12/22/22 14:51 Resp 18 12/22/22 14:51 BP 141/80 12/22/22 14:51 Pulse Ox 95 12/22/22 14:51 FiO2 Intake & Output 12/21/22 12/22/22 12/22/22 18:59 06:59 18:59 Weight 88.451 kg - Constitutional General appearance: Present: cooperative - EENT Eyes: Present: EOMI ENT: Present: hearing grossly normal - Neck Neck: Present: normal ROM - Respiratory Respiratory: bilateral: CTA - Cardiovascular Rhythm: regular Heart sounds: normal: S1, S2 - Gastrointestinal General gastrointestinal: Present: soft - Integumentary Integumentary: Present: normal turgor - Musculoskeletal Musculoskeletal: Present: gait normal - Psychiatric Psychiatric: Present: A&O x's 3, appropriate affect, intact judgment & insight - Additional findings Additional findings: Breast Exam: BRA: 42C/D inspection: bilateral grade 2/3 ptosis, postsurgical and radiation changes palpation: right breast: Multi-positional exam fibrocystic Dinges, postsurgical and postradiation changes no lesions of concern Right axilla: No adenopathy of concern Left breast: Multi-positional exam fibrocystic changes no dominant masses or nodules of concern Left axilla: no adenopathy Assessment and Plan Assessment: Impression: thyroid nodules HTN Right breast status post lumpectomy and sentinel node biopsy performed on , patient has completed radiation therapy no evidence of any recurrence she did have 2 sites of for which lumpectomy was performed in the right breast one was for invasive ductal carcinoma and the other was for ductal carcinoma in situ. She is presently on left resolved Plan: Follow up in 4 months Bilateral mammogram in May Continue left resolved Continue following with radiation and medical oncology CC: Dr. Esquivel
== END ==
LOC: WWCWWP 14:44
PROVIDERS: ATTEND Surgery
DX: Z85.3 Personal history of malignant neoplasm of breast (principal); I10 Essential (primary) hypertension; E04.1 Nontoxic single thyroid nodule

== ENCOUNTER → 2023-05-24 | Outpatient (CLI) | payer MEDICARE ==
--- NOTE | 2023-05-24 15:19 | MM ---
Reason for Exam: Hx of breast cancer, conservation therapy. Last screening mammogram was performed 12 month(s) ago. Patient History: Menarche at age 11. First Full-Term at age 32. Late child-bearing (after 28). Left ovary removed at age 30. Right ovary removed at age 53. Hysterectomy at age 53. Postmenopausal. Patient has history of breast feeding. Breast cancer, right, age 67. Breast cancer, right, age 67. 08/17/2022, Lumpectomy on the Right side. 08/17/2022, Malignant MG pre op needle loc RT on the right side. 08/17/2022, MG pre op loc each addl RT on the Right side. 07/12/2022, Malignant US biopsy breast VAD RT on the right side. 06/26/2022, Malignant MG stereo VAD BX RT on the right side. 2022, Radiation Therapy on the right side. Tissue Density: The breast tissue is heterogeneously dense. This may lower the sensitivity of mammography. Findings: Analyzed By CAD. Postsurgical changes to the right breast. No new suspicious masses, calcifications or distortions. Overall Assessment: Benign, BI-RAD 2 Management: Screening Mammogram of both breasts in 1 year. Results were given to the patient verbally at the time of exam. Patient should continue monthly self-breast exams. A clinical breast exam by your physician is recommended on an annual basis. This exam should not preclude additional follow-up of suspicious palpable abnormalities. Note on Emily scores and lifetime risk: 1. A Emily score greater than 3% is considered moderate risk. If this is the case, consider specialist referral to assess eligibility for a risk reducing agent. 2. If overall lifetime risk for the development of breast cancer is 20% or higher, the patient may qualify for future screening with alternating mammogram and breast MRI. Electronically signed and approved by: Aurelio Mendoza DO
== END | disposition home or self-care (01) ==
LOC: RADMAMWWP 14:51
PROVIDERS: ATTEND Radiology Radiation Oncology
DX: C50.411 Malignant neoplasm of upper-outer quadrant of right female breast (principal); Z17.0 Estrogen receptor positive status [ER+]; Z78.0 Asymptomatic menopausal state; R92.333 Mammographic heterogeneous density, bilateral breasts
CPT/HCPCS: 77066; G0279; 77062

== ENCOUNTER → 2023-05-24 | Outpatient (CLI) | payer MEDICARE ==
--- NOTE | 2023-05-24 16:17 | P.PN ---
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 Monge regarding a biopsy proven right breast DCIS. She had a screening mammogram n 06-05-22 this was considered BIRADS 0. [place] [address] after which stereotactic core biopsy was recommended. This was performed on 1120 122. This revealed high-grade ductal carcinoma in situ which was ER/NH negative. The mammogram has been reviewed personally with Dr. Ha it is believed that the area of concern is approximately 2 cm in size. Additionally there is a question of some nodularity in the breast which may represent some intramammary lymph nodes. The mammogram was a routine mammogram. The patient did not feel any lumps masses or nodules of concern in either breast. She is not complaining of any nipple discharge or skin changes. She never had any surgery on her breasts before. Tolerated the procedure without difficulty. After review of the mammogram with Dr. Ha an ultrasound was recommended of the right breast which led to a second biopsy of the [place] [id number]. Pathology from this revealed low-grade invasive ductal carcinoma grade 1. This tumor was ER/NH positive and HER-2 negative. Her case was presented at tumor board on [id number]. The patient would like to have breast preservation despite the fact she has 2 areas of concern in her breast. The mammogram has been reviewed with the radiologist. There are 2 distinct areas of concern in the breast. These are separate from each other. T he patient would prefer to save her breast. 12-22-22 The patient on 08-17-22 underwent a lumpectomy and SNB. 2 separate areas of lumpectomy. The first revealed high-grade DCIS with microcalcifications and comedonecrosis. All margins were negative. A second area revealed invasive low-grade ductal carcinoma of low-grade DCIS margins were negative. The patient had 3 lymph nodes sampled in addition to one sentinel node all were negative for cancer. There were new medial, inferior, and superior margins all margins were negative for in situ or invasive cancer. She completed radiation therapy October 18, 2022. She is tolerating letrazole at this time . 05-24-[address] Torres reviewed 03-13-23 The patient is not complaining of any new lumps masses or nodules of concern in either breast. Bilateral mammogra on 05-24-23 BIRAD 2. Caffeine: occasional nicotine: none, never smoker chocolate: none BCP: < a year in her 20's Family History: father: leukemia patient: uterine cancer 2007 [facility]EL Hormonal History: menarche: 11 G2M1P1, breast fed: yes, age at : 32 menopause: ablation in her 40's for fibroid tumors and bleeding; hysterectomy at 50 hormones to get minimal took at 36 Surgical History: UZIEL at 50 multiple fertility surgeries Medical History: thyroid nodules HTN Social History: nicotine: none alcohol: none drugs: none - Constitutional Constitutional: Denies chills, Denies fever - EENT Eyes: denies blurred vision, denies pain Ears: deny: decreased hearing, tinnitus Ears, nose, mouth and throat: Denies headache, Denies sore throat - Breasts Breasts: bilateral: as per HPI - Cardiovascular Cardiovascular: Denies chest pain, Denies shortness of breath - Respiratory Respiratory: Denies cough - Gastrointestinal Gastrointestinal: Denies abdominal pain, Denies diarrhea, Denies nausea, Denies vomiting - Genitourinary (Female) Genitourinary: Denies dysuria, Denies hematuria - Menstruation Menstruation: Reports post hysterectomy - Musculoskeletal Musculoskeletal: Denies myalgias - Integumentary Integumentary: Denies pruritus, Denies rash - Neurological Neurological: Denies numbness, Denies weakness - Psychiatric Psychiatric: Denies anxiety, Denies depression - Endocrine Comment: thyroid nodules Endocrine: Denies fatigue, Denies weight change - Hematologic/Lymphatic Comment: none - Allergic/Immunologic Allergic/Immunologic: Reports as per HPI Past Medical History Past Medical History: Hypertension History of Any Multi-Drug Resistant Organisms: None Reported Past Surgical History: Hysterectomy Past Anesthesia/Blood Transfusion Reactions: No Reported Reaction Past Psychological History: No Psychological Hx Reported Smoking Status: Never smoker Past Alcohol Use History: None Reported Past Drug Use History: None Reported Medications and Allergies Home Medications Medication Instructions Recorded Confirmed Type amLODIPine 10 mg PO DAILY 06/13/22 07/07/22 History Allergies Allergy/AdvReac Type Severity Reaction Status Date / Time No Known Allergies Allergy Verified 07/07/22 12:07 Objective - Constitutional General appearance: Present: cooperative - EENT Eyes: Present: EOMI ENT: Present: hearing grossly normal - Neck Neck: Present: normal ROM - Respiratory Respiratory: bilateral: CTA - Cardiovascular Heart sounds: normal: S1, S2 - Integumentary Integumentary: Present: normal turgor - Musculoskeletal Musculoskeletal: Present: gait normal - Psychiatric Psychiatric: Present: A&O x's 3, appropriate affect, intact judgment & insight - Additional findings Additional findings: Breast examination: BRA: 44C Inspection: Postsurgical and radiation changes right breast Palpation: Right breast: Postsurgical and radiation changes no dominant masses or nodules of concern on multiple positional exam Right axilla: No adenopathy of concern Left breast: Grade 3 ptosis, no dominant masses or nodules of concern on multiple positional exam Left axilla: Shoddy adenopathy Assessment and Plan Assessment: Impression: thyroid nodules HTN Right breast status post lumpectomy and sentinel node biopsy performed on , patient has completed radiation therapy no evidence of any recurrence she did have 2 sites of for which lumpectomy was performed in the right breast one was for invasive ductal carcinoma and the other was for ductal carcinoma in situ. She is presently on letrazole Bilateral mammogram [id number] BIRADS 2 Shotty adenopathy left axilla on examination Plan: Follow up in 4 months Bilateral mammogram May 2024 Continue letrazole Continue following with radiation and medical oncology Patient to come sooner if she notes any change in the left axillary area or any other questions of concern CC: Dr. Esquivel
[2023-05-24 16:24] VITALS: BP 132/77; PULSE 81; RESP 17; TEMP 97.8
== END ==
LOC: WWCWWP 14:49
PROVIDERS: ATTEND Surgery
DX: I10 Essential (primary) hypertension (principal); E04.2 Nontoxic multinodular goiter; Z85.3 Personal history of malignant neoplasm of breast; Z92.3 Personal history of irradiation; Z90.11 Acquired absence of right breast and nipple; Z79.899 Other long term (current) drug therapy

== ENCOUNTER → 2023-11-01 | Outpatient (CLI) | payer MEDICARE ==
[2023-11-01 14:15] VITALS: BP 148/76; PULSE 81; RESP 15; TEMP 98.2
--- NOTE | 2023-11-01 14:15 | P.PN ---
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 Monge regarding a right breast biopsy-proven ductal carcinoma in situ. This was diagnosed in June 2022. Mammogram with Dr. Ha and ultrasound was recommended of right breast was led to a second biopsy of a posterior portion of the right breast on 07-12-2022. This revealed low-grade invasive ductal carcinoma. The tumor was ER/MI positive and HER2 negative. She subsequently underwent a lumpectomy and sentinel node biopsy on 08-17-2022. There were 2 separate areas of concern. The first revealed high-grade DCIS with microcalcifications and comedonecrosis all margins were negative. A second site revealed invasive low-grade ductal carcinoma with low-grade DCIS and the margins were negative. The patient had 3 lymph nodes sampled in addition to 1 sentinel node and all were negative for cancer. Additional medial inferior and superior margins were all negative for in situ or invasive cancer. She completed radiation therapy October 18, 2022, she is tolerating letrozole at this time 05-31-23: Note from radiation oncology reviewed: Clinically and radiographical ly without evidence of disease recurrence She is tolerating letrazole at this time . The patient is not complaining of any new lumps masses or nodules of concern in either breast. Bilateral mammogra on 05-24-23 BIRAD 2. Caffeine: occasional nicotine: none, never smoker chocolate: none BCP: < a year in her 20's Family History: father: leukemia patient: uterine cancer 2007 [facility] Hormonal History: menarche: 11 G2M1P1, breast fed: yes, age at : 32 menopause: ablation in her 40's for fibroid tumors and bleeding; hysterectomy at 50 hormones to get minimal took at 36 Surgical History: UZIEL at 50 multiple fertility surgeries Medical History: thyroid nodules HTN Social History: nicotine: none alcohol: none drugs: none - Constitutional Constitutional: Denies chills, Denies fever - EENT Eyes: denies blurred vision, denies pain Ears: deny: decreased hearing, tinnitus Ears, nose, mouth and throat: Denies headache, Denies sore throat - Breasts Breasts: bilateral: as per HPI - Cardiovascular Cardiovascular: Denies chest pain, Denies shortness of breath - Respiratory Respiratory: Denies cough - Gastrointestinal Gastrointestinal: Denies abdominal pain, Denies diarrhea, Denies nausea, Denies vomiting - Genitourinary (Female) Genitourinary: Denies dysuria, Denies hematuria - Menstruation Menstruation: Reports post hysterectomy - Musculoskeletal Musculoskeletal: Denies myalgias - Integumentary Integumentary: Denies pruritus, Denies rash - Neurological Neurological: Denies numbness, Denies weakness - Psychiatric Psychiatric: Denies anxiety, Denies depression - Endocrine Comment: thyroid nodules Endocrine: Denies fatigue, Denies weight change - Hematologic/Lymphatic Comment: none - Allergic/Immunologic Allergic/Immunologic: Reports as per HPI Past Medical History Past Medical History: Hypertension History of Any Multi-Drug Resistant Organisms: None Reported Past Surgical History: Hysterectomy Past Anesthesia/Blood Transfusion Reactions: No Reported Reaction Past Psychological History: No Psychological Hx Reported Smoking Status: Never smoker Past Alcohol Use History: None Reported Past Drug Use History: None Reported Medications and Allergies Home Medications Medication Instructions Recorded Confirmed Type amLODIPine 10 mg PO DAILY 06/13/22 07/07/22 History Allergies Allergy/AdvReac Type Severity Reaction Status Date / Time No Known Allergies Allergy Verified 07/07/22 12:07 Objective - Constitutional General appearance: Present: cooperative - EENT Eyes: Present: EOMI ENT: Present: hearing grossly normal - Neck Neck: Present: normal ROM - Respiratory Respiratory: bilateral: CTA - Cardiovascular Heart sounds: normal: S1, S2 - Integumentary Integumentary: Present: normal turgor - Musculoskeletal Musculoskeletal: Present: gait normal - Psychiatric Psychiatric: Present: A&O x's 3, appropriate affect, intact judgment & insight - Additional findings Additional findings: BRA: 44C Inspection: Postsurgical and radiation changes right breast Palpation: Right breast: Postsurgical and radiation changes no dominant masses or nodules of concern on multiple positional exam Right axilla: No adenopathy of concern Left breast: Grade 3 ptosis, no dominant masses or nodules of concern on multiple positional exam Left axilla: no adenopathy of concern Assessment and Plan Assessment: Assessment and Plan Assessment: Impression: thyroid nodules HTN Right breast status post lumpectomy and sentinel node biopsy performed on , patient has completed radiation therapy no evidence of any recurrence she did have 2 sites of for which lumpectomy was performed in the right breast one was for invasive ductal carcinoma and the other was for ductal carcinoma in situ. She is presently on letrazole Bilateral mammogram [id number] BIRADS 2 Shotty adenopathy left axilla resolved Plan: Follow up in 6 months Bilateral mammogram May 2024 Continue letrazole Continue following with radiation and medical oncology Patient to come sooner if she notes any thing of concern Dash Bryan
== END ==
LOC: WWCWWP 12:33
PROVIDERS: ATTEND Surgery
DX: D05.11 Intraductal carcinoma in situ of right breast (principal); I10 Essential (primary) hypertension; E04.1 Nontoxic single thyroid nodule; Z98.890 Other specified postprocedural states; Z90.710 Acquired absence of both cervix and uterus; Z92.3 Personal history of irradiation; Z79.899 Other long term (current) drug therapy

== ENCOUNTER → 2024-05-26 | Outpatient (CLI) | payer MEDICARE ==
--- NOTE | 2024-05-26 14:08 | MM ---
Reason for Exam: Hx of breast cancer, conservation therapy. Last screening mammogram was performed 12 month(s) ago. Patient History: Menarche at age 11. First Full-Term at age 32. Late child-bearing (after 30). Left ovary removed at age 30. Right ovary removed at age 53. Hysterectomy at age 53. Postmenopausal. Patient has history of breast feeding. Breast cancer, right, age 67. Breast cancer, right, age 67. 08/17/2022, Lumpectomy on the Right side. 08/17/2022, Malignant MG pre op needle loc RT on the right side. 08/17/2022, MG pre op loc each addl RT on the Right side. 07/12/2022, Malignant US biopsy breast VAD RT on the right side. 06/26/2022, Malignant MG stereo VAD BX RT on the right side. 2022, Radiation Therapy on the right side. Prior Study Comparison: 06/02/2021 Bilateral Screening Mammogram, [facility]. 06/05/2022 Bilateral MG 3D screening mammo w/cad, [facility]. 06/09/2022 Right MG 3D work up w/cad RT, [facility]. 07/07/2022 Right US breast RT, [facility]. 07/12/2022 Right MG diagnostic mammo RT wo CAD, [facility]. 05/24/2023 Bilateral MG 3D diag mammo w/cad [facility], [facility]. Tissue Density: There are scattered areas of fibroglandular density. Findings: Analyzed By CAD. Postsurgical and posttreatment changes right breast. Surgical clips located posteriorly outer aspect. New regional round and punctate calcifications at the excisional site favoring a benign etiology. No suspicious microcalcifications are seen at this time. Six-month follow-up recommended. Otherwise, no significant change. Overall Assessment: Probably benign, BI-RAD 3 Management: Diagnostic Mammogram of the right breast in 6 months. Results were given to the patient verbally at the time of exam. Patient should continue monthly self-breast exams. A clinical breast exam by your physician is recommended on an annual basis. This exam should not preclude additional follow-up of suspicious palpable abnormalities. [facility], , 05/26/2024 2:05 PM. Electronically signed and approved by: Franklin Anderson M.D. Radiologist
== END | disposition home or self-care (01) ==
LOC: RADMAMWWP 13:01
PROVIDERS: ATTEND Surgery
CPT/HCPCS: 77062; 77066

== ENCOUNTER → 2024-06-02 | Outpatient (CLI) | payer MEDICARE ==
--- NOTE | 2024-06-02 10:51 | P.PN ---
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 Monge regarding a right breast biopsy-proven ductal carcinoma in situ. This was diagnosed in June 2022. Mammogram with Dr. Ha and ultrasound was recommended of right breast was led to a second biopsy of a posterior portion of the right breast on 07-12-2022. This revealed low-grade invasive ductal carcinoma. The tumor was ER/VT positive and HER2 negative. She subsequently underwent a lumpectomy and sentinel node biopsy on 08-17-2022. There were 2 separate areas of concern. The first revealed high-grade DCIS with microcalcifications and comedonecrosis all margins were negative. A second site revealed invasive low-grade ductal carcinoma with low-grade DCIS and the margins were negative. The patient had 3 lymph nodes sampled in addition to 1 sentinel node and all were negative for cancer. Additional medial inferior and superior margins were all negative for in situ or invasive cancer. She completed radiation therapy October 18, 2022, she is tolerating letrozole at this time Underwent a bilateral mammogram on 05-26-2024 this is benign BI-RADS 3 and diagnostic right breast mammogram in 6 months is recommended. The right breast revealed postsurgical and posttreatment changes. New regional round and punctat e calcifications at the site of the excisional biopsy were noted which were felt to be benign but repeat evaluation in 6 months recommended. No lesions of concern noted in the left breast. She does not feel any new lumps masses or nodules of concern in either breast. She did have some secondary to mobility issues with the right arm. Those resolved. This was done in the spring 2023. Caffeine: occasional nicotine: none, never smoker chocolate: none BCP: < a year in her 20's Family History: father: leukemia patient: uterine cancer 2007 [facility] Hormonal History: menarche: 11 G2M1P1, breast fed: yes, age at : 32 menopause: ablation in her 40's for fibroid tumors and bleeding; hysterectomy at 50 hormones to get minimal took at 36 Surgical History: UZIEL at 50 multiple fertility surgeries right breast lumpectomy and SNB Medical History: thyroid nodules HTN Social History: nicotine: none alcohol: none drugs: none - Constitutional Constitutional: Denies chills, Denies fever - EENT Eyes: denies blurred vision, denies pain Ears: deny: decreased hearing, tinnitus Ears, nose, mouth and throat: Denies headache, Denies sore throat - Breasts Breasts: bilateral: as per HPI - Cardiovascular Cardiovascular: Denies chest pain, Denies shortness of breath - Respiratory Respiratory: Denies cough - Gastrointestinal Gastrointestinal: Denies abdominal pain, Denies diarrhea, Denies nausea, Denies vomiting - Genitourinary (Female) Genitourinary: Denies dysuria, Denies hematuria - Menstruation Menstruation: Reports post hysterectomy - Musculoskeletal Musculoskeletal: Denies myalgias - Integumentary Integumentary: Denies pruritus, Denies rash - Neurological Neurological: Denies numbness, Denies weakness - Psychiatric Psychiatric: Denies anxiety, Denies depression - Endocrine Comment: thyroid nodules Endocrine: Denies fatigue, Denies weight change - Hematologic/Lymphatic Comment: none - Allergic/Immunologic Allergic/Immunologic: Reports as per HPI Past Medical History Past Medical History: Hypertension History of Any Multi-Drug Resistant Organisms: None Reported Past Surgical History: Hysterectomy Past Anesthesia/Blood Transfusion Reactions: No Reported Reaction Past Psychological History: No Psychological Hx Reported Smoking Status: Never smoker Past Alcohol Use History: None Reported Past Drug Use History: None Reported Medications and Allergies Home Medications Medication Instructions Recorded Confirmed Type amLODIPine 10 mg PO DAILY 06/13/22 07/07/22 History Allergies Allergy/AdvReac Type Severity Reaction Status Date / Time No Known Allergies Allergy Verified 07/07/22 12:07 Objective - Constitutional General appearance: Present: cooperative - EENT Eyes: Present: EOMI ENT: Present: hearing grossly normal - Neck Neck: Present: normal ROM - Respiratory Respiratory: bilateral: CTA - Cardiovascular Rhythm: regular - Integumentary Integumentary: Present: normal turgor - Musculoskeletal Musculoskeletal: Present: gait normal - Psychiatric Psychiatric: Present: A&O x's 3, appropriate affect, intact judgment & insight - Additional findings Additional findings: BRA: 44C Inspection: Postsurgical and radiation changes right breast Palpation: Right breast: Postsurgical and radiation changes no dominant masses or nodules of concern on multiple positional exam Right axilla: No adenopathy of concern Left breast: Grade 3 ptosis, no dominant masses or nodules of concern on multiple positional exam Left axilla: no adenopathy of concern Assessment and Plan Assessment: Impression: thyroid nodules HTN Right breast status post lumpectomy and sentinel node biopsy performed on , patient has completed radiation therapy no evidence of any recurrence she did have 2 sites of for which lumpectomy was performed in the right breast one was for invasive ductal carcinoma and the other was for ductal carcinoma in situ. She is presently on letrazole Bilateral mammogram 1-24 BIRAD 3, repeat right breast mammogram in 6 months Shotty adenopathy left axilla resolved Plan: Right breast mammogram in November 2024 with appointment at that time Bilateral mammogram in May 2025 Continue letrazole Continue following with radiation and medical oncology Patient to come sooner if she notes any thing of concern Dash Bryan
== END ==
LOC: WWCWWP 09:29
PROVIDERS: ATTEND Surgery

== ENCOUNTER → 2024-11-25 | Outpatient (CLI) | payer MEDICARE ==
--- NOTE | 2024-11-25 11:04 | MM ---
Reason for Exam: Follow-up at short interval from prior study. Last screening mammogram was performed 6 month(s) ago. Patient History: Menarche at age 11. First Full-Term at age 32. Late child-bearing (after 30). Left ovary removed at age 30. Right ovary removed at age 53. Hysterectomy at age 53. Postmenopausal. Patient has history of breast feeding. Breast cancer, right, age 67. Breast cancer, right, age 67. 08/17/2022, Lumpectomy on the Right side. 08/17/2022, Malignant MG pre op needle loc RT on the right side. 08/17/2022, MG pre op loc each addl RT on the Right side. 07/12/2022, Malignant US biopsy breast VAD RT on the right side. 06/26/2022, Malignant MG stereo VAD BX RT on the right side. 2022, Radiation Therapy on the right side. Prior Study Comparison: 07/12/2022 Right MG diagnostic mammo RT wo CAD, [facility]. 05/24/2023 Bilateral MG 3D diag mammo w/cad [facility], [facility]. 05/26/2024 Bilateral MG 3D diag mammo w/cad [facility], [facility]. Tissue Density: Right: The breasts are heterogeneously dense, which may obscure small masses. Findings: Analyzed By CAD. Scattered benign appearing calcifications remain unchanged. Postoperative changes upper outer quadrant right breast. Radiation therapy changes seen. No recurrent mass or suspicious cluster microcalcifications seen at this time. Overall Assessment: Benign, BI-RAD 2 Management: Diagnostic Mammogram of both breasts in 6 months. . Results were given to the patient verbally at the time of exam. Patient should continue monthly self-breast exams. A clinical breast exam by your physician is recommended on an annual basis. This exam should not preclude additional follow-up of suspicious palpable abnormalities. Note on Emily scores and lifetime risk: 1. A Emily score greater than 3% is considered moderate risk. If this is the case, consider specialist referral to assess eligibility for a risk reducing agent. 2. If overall lifetime risk for the development of breast cancer is 20% or higher, the patient may qualify for future screening with alternating mammogram and breast MRI. [facility], , 11/25/2024 10:59 AM. Electronically signed and approved by: Servando Jarquin M.D. Radiologis
== END | disposition home or self-care (01) ==
LOC: RADMAMWWP 10:36
PROVIDERS: ATTEND Surgery
DX: R92.331 Mammographic heterogeneous density, right breast (principal); Z85.3 Personal history of malignant neoplasm of breast; Z78.0 Asymptomatic menopausal state
CPT/HCPCS: 77061; 77065

== ENCOUNTER → 2024-11-28 | Outpatient (CLI) | payer MEDICARE ==
[2024-11-28 11:52] VITALS: BP 128/73; PULSE 80; RESP 17; TEMP 97.9
--- NOTE | 2024-11-28 12:11 | P.PN ---
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 Monge regarding a right breast biopsy-proven ductal carcinoma in situ. This was diagnosed in June 2022. Mammogram with Dr. Ha and ultrasound was recommended of right breast was led to a second biopsy of a posterior portion of the right breast on 07-12-2022. This revealed low-grade invasive ductal carcinoma. The tumor was ER/WV positive and HER2 negative. She subsequently underwent a lumpectomy and sentinel node biopsy on 08-17-2022. There were 2 separate areas of concern. The first revealed high-grade DCIS with microcalcifications and comedonecrosis all margins were negative. A second site revealed invasive low-grade ductal carcinoma with low-grade DCIS and the margins were negative. The patient had 3 lymph nodes sampled in addition to 1 sentinel node and all were negative for cancer. Additional medial inferior and superior margins were all negative for in situ or invasive cancer. She completed radiation therapy October 18, 2022, she is tolerating letrozole at this time Underwent a bilateral mammogram on 05-26-2024 this is benign BI-RADS 3 and diagnostic right breast mammogram in 6 months is recommended. The right breast revealed postsurgical and posttreatment changes. New regional round and punctate calcifications at the site of the excisional biopsy were noted which were felt to be benign but repeat evaluation in 6 months recommended. No lesions of concern noted in the left breast. She does not feel any new lumps masses or nodules of concern in either breast. She did have some secondary to mobility issues with the right arm. Those resolved. This was done in the spring 2023. 11-28-24 lumpectomy and SNB on right breast 08-17-22 There were 2 separate areas of concern. The first revealed high-grade DCIS with microcalcifications and comedonecrosis all margins were negative. A second site revealed invasive low-grade ductal carcinoma with low-grade DCIS and the margins were negative. The patient had 3 lymph nodes sampled in addition to 1 sentinel node and all were negative for cancer. Additional medial inferior and superior margins were all negative for in situ or invasive cancer. She completed radiation therapy October 18, 2022, she stopped letrozole at this time secondary to aching of her legs Underwent a bilateral mammogram on 05-26-2024 this is benign BI-RADS 3 and diagnostic right breast mammogram in 6 months is recommended. The right breast revealed postsurgical and posttreatment changes. New regional round and punctate calcifications at the site of the excisional biopsy were noted which were felt to be benign but repeat evaluation in 6 months recommended. No lesions of concern noted in the left breast. repeat right breast mammogram on 11-25-24 BIRAD 2 bilateral mammogram in 6 months She does not feel any new lumps masses or nodules of concern in either breast. She fell this winter and broke her right arm is in physical therapy now with PT for her right shoulder She stopped letrazole in Sep, and fell after this she also has a problem with dizzyness Caffeine: occasional nicotine: none, never smoker chocolate: none BCP: < a year in her 20's Family History: father: leukemia patient: uterine cancer 2007 [facility] Hormonal History: menarche: 11 G2M1P1, breast fed: yes, age at : 32 menopause: ablation in her 40's for fibroid tumors and bleeding; hysterectomy at 50 hormones to get minimal took at 36 Surgical History: UZIEL at 50 multiple fertility surgeries right breast lumpectomy and SNB Medical History: thyroid nodules HTN Social History: nicotine: none alcohol: none drugs: none - Constitutional Constitutional: Denies chills, Denies fever - EENT Eyes: denies blurred vision, denies pain Ears: deny: decreased hearing, tinnitus Ears, nose, mouth and throat: Denies headache, Denies sore throat - Breasts Breasts: bilateral: as per HPI - Cardiovascular Cardiovascular: Denies chest pain, Denies shortness of breath - Respiratory Respiratory: Denies cough - Gastrointestinal Gastrointestinal: Denies abdominal pain, Denies diarrhea, Denies nausea, Denies vomiting - Genitourinary (Female) Genitourinary: Denies dysuria, Denies hematuria - Menstruation Menstruation: Reports post hysterectomy - Musculoskeletal Musculoskeletal: Denies myalgias - Integumentary Integumentary: Denies pruritus, Denies rash - Neurological Neurological: Denies numbness, Denies weakness - Psychiatric Psychiatric: Denies anxiety, Denies depression - Endocrine Comment: thyroid nodules Endocrine: Denies fatigue, Denies weight change - Hematologic/Lymphatic Comment: none - Allergic/Immunologic Allergic/Immunologic: Reports as per HPI Past Medical History Past Medical History: Hypertension History of Any Multi-Drug Resistant Organisms: None Reported Past Surgical History: Hysterectomy Past Anesthesia/Blood Transfusion Reactions: No Reported Reaction Past Psychological History: No Psychological Hx Reported Smoking Status: Never smoker Past Alcohol Use History: None Reported Past Drug Use History: None Reported Medications and Allergies Home Medications Medication Instructions Recorded Confirmed Type amLODIPine 10 mg PO DAILY 06/13/22 07/07/22 History Allergies Allergy/AdvReac Type Severity Reaction Status Date / Time No Known Allergies Allergy Verified 07/07/22 12:07 Objective - Vital Signs Vital signs: Vital Signs Temp 97.9 F 11/28/24 11:49 Pulse 80 11/28/24 11:49 Resp 17 11/28/24 11:49 BP 128/73 11/28/24 11:49 Pulse Ox 96 11/28/24 11:49 FiO2 Intake & Output 11/27/24 11/28/24 11/28/24 18:59 06:59 18:59 Weight 83.915 kg - Constitutional General appearance: Present: cooperative - EENT Eyes: Present: EOMI ENT: Present: hearing grossly normal - Neck Neck: Present: normal ROM - Respiratory Respiratory: bilateral: CTA - Cardiovascular Rhythm: regular Heart sounds: normal: S1, S2 - Integumentary Integumentary: Present: normal turgor - Musculoskeletal Musculoskeletal: Present: gait normal - Psychiatric Psychiatric: Present: A&O x's 3, appropriate affect, intact judgment & insight - Additional findings Additional findings: BRA: 44C Inspection: Postsurgical and radiation changes right breast Palpation: Right breast: Postsurgical and radiation changes no dominant masses or nodules of concern on multiple positional exam Right axilla: No adenopathy of concern Left breast: Grade 3 ptosis, no dominant masses or nodules of concern on multiple positional exam Left axilla: no adenopathy of concern Scar right shoulder from surgery after fracture Decreased mobility right arm, she is seeing physical therapy Assessment and Plan Assessment: Impression: thyroid nodules HTN Right breast status post lumpectomy and sentinel node biopsy performed on , patient has completed radiation therapy no evidence of any recurrence she did have 2 sites of for which lumpectomy was performed in the right breast one was for invasive ductal carcinoma and the other was for ductal carcinoma in situ. She is presently on letrazole Bilateral mammogram 1021-24 BIRAD 3, repeat right breast mammogram in 6 months Shotty adenopathy left axilla resolved right breast mammogram on 11-25-24 BIRAD 2 bilateral mammogram in 6 months Plan: Right breast mammogram in November 2024 with appointment at that time; done pn 11-25-24 BIRAD 2 Bilateral mammogram in May 2025 stopped letrazole will disciss with Dr. Torres Continue following with radiation and medical oncology Patient to come sooner if she notes any thing of concern Continue with physical therapy Dash Bryan
== END ==
LOC: WWCWWP 10:27
PROVIDERS: ATTEND Surgery
DX: Z12.31 Encounter for screening mammogram for malignant neoplasm of breast (principal); E04.1 Nontoxic single thyroid nodule; I10 Essential (primary) hypertension; D05.11 Intraductal carcinoma in situ of right breast; Z98.890 Other specified postprocedural states